=== PATIENT | male | born 1960 | race Caucasian/White ===

== ENCOUNTER 2016-10-06 09:19 | Emergency (ER) | payer BC ==
--- NOTE | ~2016-10-06 | CT98 ---
[facility] A Service [facility] RADIOLOGY TEXT RESULTS PATIENT: LILI LAUGHLIN JR LOCATION: SED : 62 UNIT #: [id number] AGE: [address]: Hernandez Bowden MD SEX: M ORDER DR: [id number] [place] [id number] E MR#: [id number] Acc #: [id number] NAME: LILI LAUGHLIN JR : 1960 SEX: M STUDY DATE/TIME: 10/06/2016 9:45 UNIT: SED ROOM: STUDY DESCRIPTION: CT Lumbar Spine Wo Cont Attending Physician: Hernandez Bowden M.D. Ordering Physician: Hernandez Bowden M.D. Primary Care Physician: Primary Care Physician No MEDICAL IMAGING REPORT This report is preliminary unless electronic signature is present. EXAM CT of the lumbar spine HISTORY Chronic low back pain for 10 years radiating down the left leg intermittently. Gradually getting worse. TECHNIQUE Transaxial imaging of the lumbar spine was performed with multiplanar reconstructions. This CT examination was performed with one or more of the following radiation dose reduction techniques: automatic exposure control, adjustment of mA and/or kV according to patient size, and iterative reconstruction. FINDINGS Lumbar alignment is normal. The T12-L1, and the L1-L2 disc are normal. At L2-3, there is mild disc bulging posteriorly. L3-4 disc is normal. L4-5 disc shows mild diffuse posterior disc bulging. L5-S1 level shows minimal posterior disc bulging. There are mild facet hypertrophic changes at L4-5 and L5-S1 and to a lesser degree at L3-4. No evidence of significant outlet foraminal stenosis. No definite exiting nerve root compression. CONCLUSION Mild degenerative disc bulging at the L2-3, L4-5 and L5-S1 levels. Facet disease at L3-4, L4-5 and L5-S1. This is minimal. No evidence of exiting nerve root compression. Dictated by... Daniel Herbert M.D. [facility] A Service of [facility] RADIOLOGY TEXT RESULTS PATIENT: LILI LAUGHLIN JR LOCATION: SED : 62 UNIT #: [id number] AGE: [address]: Hernandez Bowden MD SEX: M ORDER DR: THIS IS AN ELECTRONICALLY VERIFIED REPORT Daniel Herbert M.D. at 10/06/2016 5:08 PM ELADIO/castro TD: 10/06/2016 14:00 JOB #: [id number] MEDICAL IMAGING REPORT Page 1 of 1
[2016-10-06 11:44] LABS: URINE SOURCE CLEAN CATCH
[2016-10-06 11:48] LABS: URINE APPEARANCE CLEAR; URINE BILIRUBIN NEG (NEG); URINE BLOOD NEG (NEG); URINE COLOR YELLOW; URINE GLUCOSE NEG (NORM); URINE KETONE NEG (NEG); URINE LEUKOCYTE ESTERASE 1+ (NEG); URINE NITRATE NEG (NEG); URINE PH 6.5 (5-8); URINE PROTEIN NEG (NEG); URINE SPECIFIC GRAVITY 1.015 (1.003-1.035)
[2016-10-06 11:53] LABS: MICRO INDICATED? YES
[2016-10-06 12:15] LABS: CULTURE INDICATED? NO; URINE BACTERIA NEG (NEG); URINE RBC 0-2 /[HPF] (0-2)
[2016-10-06] MEDS ORDERED: BACTRIM DS TABL1 TA1 PO (12:35)
[2016-10-06] MEDS ORDERED: IBUPROFEN600 MG PO (12:35)
[2016-10-06] MEDS ORDERED: SKELAXIN PO (12:35)
== END 2016-10-06 12:40 | disposition home or self-care (01) ==
LOC: SED 09:19
PROVIDERS: Emergency Medicine
DX: S39.012A Strain of muscle, fascia and tendon of lower back, initial encounter (principal); N30.00 Acute cystitis without hematuria; Z87.891 Personal history of nicotine dependence; X58.XXXA Exposure to other specified factors, initial encounter; Y92.89 Other specified places as the place of occurrence of the external cause
CPT/HCPCS: 72131; 81003; 99284